=== PATIENT | male | born 1940 | race Caucasian/White ===

== ENCOUNTER 2019-12-25 16:50 | Inpatient (IN) ==
[2019-12-25] MEDS ORDERED: *HR* Promethazine 25 MG/ML VIAL IVP PRN (18:31)
[2019-12-25] MEDS ORDERED: Naloxone 0.4 MG/ML INJ IVP PRN ×2 (18:31→21:21)
[2019-12-25 19:20] LABS: Basophils % 0.8 %; Eosinophils # 0.2 K/mcL (0.0-0.6); Eosinophils % 3.2 %; Hematocrit 44.8 % (37.5-50.1); Hemoglobin 14.9 g/dL (12.9-16.9); Immature Granulocytes % 0.2 % (0-4); Lymphocytes # 1.4 K/mcL (0.6-4.6); Lymphocytes % 27.1 %; Mean Corpuscular HGB Conc 33.3 g/dL (31.6-35.5); Mean Corpuscular Hemoglobin 30.2 pg (28.0-33.3); Mean Corpuscular Volume 90.9 fL (83.0-100.0); Mean Platelet Volume 10.7 fL (9.4-12.4); Monocytes # 0.5 K/mcL (0.0-1.3); Monocytes % 8.9 %; Platelet Count 199 K/mcL (140-400); Red Blood Count 4.93 M/mcL (4.19-5.50); Red Cell Distribution Width 14.1 % (11.5-14.5); Segmented Neutrophils % 59.8 %; White Blood Count 5.1 K/mcL (4.3-11.1)
[2019-12-25 19:29] LABS: Prothrombin Time 11.2 Seconds (9.4-12.1)
[2019-12-25 19:31] LABS: Activated Partial Thrombo Time 33.8 Seconds (26.0-36.0)
[2019-12-25 20:02] LABS: Alanine Aminotransferase 16 Units/L (7-52); Albumin 3.8 g/dL (3.5-5.7); Albumin/Globulin Ratio 1.3 (1.1-2.2); Alkaline Phosphatase 57 Units/L (34-104); Aspartate Amino Transferase 25 Units/L (13-39); BUN/Creatinine Ratio 13 (6-26); Bilirubin,Total 0.8 mg/dL (0.3-1.0); Blood Urea Nitrogen 14 mg/dL (8-23); Calcium 9.6 mg/dL (8.6-10.3); Carbon Dioxide 16 mEq/L (23-29); Chloride 108 mEq/L (98-107); Chol/HDL Ratio 7.4 (0-4.9); Cholesterol 216 mg/dL (< 200); Glucose 83 mg/dL (70-105); HDL Cholesterol 29 mg/dL (40-59); LDL Cholesterol,Calculated 145 mg/dL (0-99); Magnesium 1.8 mg/dL (1.6-2.6); Osmolality,Calculated 286 (280-300); Phosphorous 2.9 mg/dL (2.7-4.5); Potassium 4.2 mEq/L (3.5-5.1); Sodium 138 mEq/L (136-145); Total Protein 6.8 g/dL (6.4-8.9); Triglycerides 208 mg/dL (< 150); Troponin I < 0.03 ng/mL (< 0.04); eGFR For African Americans > 60 (> 60); eGFR For Non-African Americans > 60 (> 60)
[2019-12-25] MEDS ORDERED: Aspirin Enteric Coated 325 MG Tablet PO ONE (21:21)
[2019-12-25] MEDS ORDERED: Magnesium Oxide 400 MG TABLET PO ONE (21:24)
[2019-12-25] MEDS ORDERED: Ringers Solution, Lactated 1,000 ML IVC SCH (21:30)
[2019-12-26 03:21] LABS: VBG HCO3 22 mEq/L (21-27); VBG PCO2 35 mmHg (41-51); VBG PO2 104 mmHg (25-50)
[2019-12-26 03:24] LABS: Basophils % 0.8 %; Eosinophils # 0.2 K/mcL (0.0-0.6); Eosinophils % 3.6 %; Hematocrit 44.4 % (37.5-50.1); Immature Granulocytes % 0.4 % (0-4); Lymphocytes # 1.8 K/mcL (0.6-4.6); Lymphocytes % 34.5 %; Mean Corpuscular HGB Conc 33.8 g/dL (31.6-35.5); Mean Corpuscular Hemoglobin 30.2 pg (28.0-33.3); Mean Corpuscular Volume 89.3 fL (83.0-100.0); Mean Platelet Volume 10.9 fL (9.4-12.4); Monocytes # 0.5 K/mcL (0.0-1.3); Monocytes % 9.6 %; Neutrophils # 2.7 K/mcL (1.6-8.9); Platelet Count 212 K/mcL (140-400); Red Blood Count 4.97 M/mcL (4.19-5.50); Red Cell Distribution Width 13.8 % (11.5-14.5); Segmented Neutrophils % 51.1 %; White Blood Count 5.2 K/mcL (4.3-11.1)
[2019-12-26 03:36] LABS: BUN/Creatinine Ratio 12 (6-26); Blood Urea Nitrogen 13 mg/dL (8-23); Calcium 9.5 mg/dL (8.6-10.3); Carbon Dioxide 20 mEq/L (23-29); Chloride 107 mEq/L (98-107); Glucose 102 mg/dL (70-105); Osmolality,Calculated 284 (280-300); Phosphorous 2.7 mg/dL (2.7-4.5); Potassium 3.7 mEq/L (3.5-5.1); Sodium 137 mEq/L (136-145); eGFR For African Americans > 60 (> 60); eGFR For Non-African Americans > 60 (> 60)
[2019-12-26 03:37] LABS: Troponin I < 0.03 ng/mL (< 0.04)
[2019-12-26 03:51] LABS: Thyroid Stimulating Hormone 4.761 mcIU/mL (0.340-5.600)
[2019-12-26 04:00] LABS: Folate 9.1 ng/mL (3.0-16.0)
[2019-12-26 05:42] LABS: Bilirubin,Urine Negative (Negative); Blood,Urine Negative (Negative); Clarity,Urine Clear (Clear); Color,Urine Yellow (Yellow); Glucose,Urine (UA) Normal (Normal); Ketones,Urine Negative (Negative); Leukocyte Esterase,Urine Trace (Negative); Nitrite,Urine Negative (Negative); Protein,Urine Negative (Neg-Trace); Specific Gravity,Urine 1.017 (1.010-1.025); Urobilinogen,Urine Normal (Normal)
[2019-12-26 05:43] LABS: Bacteria,Urine None Seen per hpf (None-Few); Hyaline Casts,Urine None Seen per lpf (None-Few); RBC,Urine 0-3 per hpf (0-3); Squamous Epithelial Cell,Urine Moderate per lpf (None-Few); WBC,Urine 0-3 per hpf (0-3)
[2019-12-26 08:29] LABS: Estimated Average Glucose 117 mg/dl
[2019-12-26] MEDS ORDERED: Perflutren Lipid Microsphere 1.3 ML in 0.9 % Sodium Chloride 8.7 ML IVP ONE (09:26)
[2019-12-26] MEDS ORDERED: D5% in Water 1,000 ML IVC PRN (12:55)
[2019-12-26] MEDS ORDERED: *HR* Dextrose 50 % in Water (Syg) 50 ML SYRINGE IVP PRN (12:55)
[2019-12-26] MEDS ORDERED: Dextrose Gel 15 GM/37.5 ML TUBE PO PRN ×2 (12:55)
[2019-12-26] MEDS: Insulin LISPRO 300 UNITS/3 ML VIAL SQ SCH ×2 (13:55→17:37)
[2019-12-26] MEDS: lisinopriL 10 MG TABLET PO SCH (14:09)
[2019-12-26] MEDS: Aspirin 81 MG TAB.CHEW PO SCH (14:09)
[2019-12-26] MEDS: Carbidopa/Levodopa 25/100 TABLET PO SCH ×2 (14:09→20:36)
[2019-12-26] MEDS: Famotidine 20 MG TABLET PO SCH (20:36)
[2019-12-26] MEDS ORDERED: Insulin LISPRO 300 UNITS/3 ML VIAL SQ SCH (21:00)
[2019-12-27] MEDS: Insulin LISPRO 300 UNITS/3 ML VIAL SQ SCH ×2 (07:56→11:51)
[2019-12-27] MEDS: lisinopriL 10 MG TABLET PO SCH (09:39)
[2019-12-27] MEDS: Famotidine 20 MG TABLET PO SCH (09:39)
[2019-12-27] MEDS: Carbidopa/Levodopa 25/100 TABLET PO SCH (09:39)
[2019-12-27] MEDS: Aspirin 81 MG TAB.CHEW PO SCH (09:39)
[2019-12-27] MEDS ORDERED: haloperidoL 1 MG TABLET PO ONE (11:07)
[2019-12-27 11:32] VITALS: BP 135/77
== END 2019-12-27 15:29 | DRG 69 ==
LOC: 3BNU → SUATTDRO 18:12
PROVIDERS: ADMIT Internal Medicine; ATTEND Internal Medicine